=== PATIENT | male | born 1935 | race Caucasian/White ===

== ENCOUNTER 2019-06-28 14:49 | Inpatient (IN) | payer MEDICARE, BC ==
[~2019-06-28] VITALS: Ht 175.3 cm; Wt 71.2 kg
[2019-06-28 18:41] VITALS: BP 169/76
[2019-06-28] MEDS ORDERED: DEXTROSE 50% 50 ML DISP.SYRIN IV PRN (20:30)
[2019-06-28 20:33] VITALS: BP 115/70
[2019-06-28] MEDS ORDERED: Z GUARD REMEDY PASTE 57 GM TUBE TOP PRN (21:00)
[2019-06-28] MEDS ORDERED: ATORVASTATIN 40 MG TABLET PO SCH (21:00)
[2019-06-28] MEDS ORDERED: SENNOSIDES 1 TABLET GT PRN (21:00)
[2019-06-28] MEDS: CARBIDOPA/LEVODOPA 25-250MG TABLET GT SCH (21:24)
[2019-06-29] MEDS: BLOOD SUGAR DIAGNOSTIC 1 EACH STRIP VI SCH ×5 (00:36→23:47)
[2019-06-29 04:01] VITALS: BP 146/74
[2019-06-29 07:57] VITALS: BP 148/67
[2019-06-29] MEDS ORDERED: ASPIRIN EC 81 MG TABLET.DR PO SCH (09:00)
[2019-06-29] MEDS ORDERED: METOPROLOL SUCCINATE XL 25 MG TAB.SR.24H PO SCH (09:00)
[2019-06-29] MEDS ORDERED: Medication Not On Formulary EA (Atorvastatin Calcium (Lipitor) 80 MG) GT SCH (09:00)
[2019-06-29] MEDS ORDERED: LOSARTAN POTASSIUM 50 MG TABLET PO SCH (09:00)
[2019-06-29] MEDS: ASPIRIN 81 MG TAB.CHEW GT SCH (09:14)
[2019-06-29] MEDS: AMLODIPINE 5 MG TABLET GT SCH (09:15)
[2019-06-29] MEDS: LOSARTAN POTASSIUM 50 MG TABLET GT SCH (09:16)
[2019-06-29] MEDS: CARBIDOPA/LEVODOPA 25-250MG TABLET GT SCH ×4 (09:18→21:02)
[2019-06-29] MEDS: LEVOTHYROXINE SODIUM 200 MCG TABLET GT SCH (09:21)
[2019-06-29] MEDS: INSULIN REGULAR, HUMAN 300 UNIT/3 ML VIAL SQ PRN ×3 (09:23→23:50)
[2019-06-29] MEDS: METOPROLOL TARTRATE 25 MG TABLET GT SCH ×2 (14:44→21:04)
[2019-06-29 15:59] VITALS: BP 139/70
[2019-06-29] MEDS: GLUCERNA 1.2 1000ML LIQUID GT PRN (18:00)
[2019-06-29] MEDS ORDERED: METOPROLOL TARTRATE 25 MG TABLET GT SCH (21:00)
[2019-06-29] MEDS: ATORVASTATIN 40 MG TABLET GT SCH (21:03)
[2019-06-29 21:26] VITALS: BP 130/67
[2019-06-30] MEDS: BLOOD SUGAR DIAGNOSTIC 1 EACH STRIP VI SCH ×3 (06:01→17:23)
[2019-06-30] MEDS: INSULIN REGULAR, HUMAN 300 UNIT/3 ML VIAL SQ PRN ×3 (06:04→17:24)
[2019-06-30] MEDS: LEVOTHYROXINE SODIUM 200 MCG TABLET GT SCH (06:06)
[2019-06-30 06:15] VITALS: BP 152/65
[2019-06-30 07:32] LABS: BASOPHILS # (AUTO) 0.1 K/uL (0.0-8.0); BASOPHILS % (AUTO) 0.8 % (0.0-2.0); EOSINOPHILS # (AUTO) 0.4 K/uL (0.0-0.7); EOSINOPHILS % (AUTO) 3.5 % (0.0-7.0); HEMATOCRIT 39.9 % (36.7-47.1); LYMPHOCYTES # (AUTO) 1.1 K/uL (20.0-40.0); LYMPHOCYTES % (AUTO) 9.6 % (20.5-51.5); MEAN CORPUSCULAR HEMOGLOBIN 27.4 uug (23.8-33.4); MEAN CORPUSCULAR HGB CONC 33 g/dL (32.5-36.3); MEAN CORPUSCULAR VOLUME 84.1 fL (73.0-96.2); MONOCYTES # (AUTO) 1.1 K/uL (2.0-10.0); MONOCYTES % (AUTO) 9.5 % (0.0-11.0); NEUTROPHILS # (AUTO) 8.8 K/uL (1.8-8.9); NEUTROPHILS % (AUTO) 76.6 % (38.5-71.5); PLATELET COUNT (AUTO) 91 K/uL (152-348); RED BLOOD CELL COUNT(AUTO) 4.75 MIL/uL (4.06-5.63); WHITE BLOOD COUNT (AUTO) 11.6 K/uL (3.6-10.2)
[2019-06-30 07:44] LABS: BILIRUBIN,TOTAL 0.5 mg/dL (0.2-1.0); MAGNESIUM 2.1 mg/dL (1.8-2.4); PHOSPHOROUS 3.5 mg/dL (2.5-4.9); POTASSIUM 3.7 mmol/L (3.5-5.1); TOTAL PROTEIN, SERUM 6.1 g/dL (6.4-8.2)
[2019-06-30 08:00] VITALS: BP 151/67
[2019-06-30] MEDS: METOPROLOL TARTRATE 25 MG TABLET GT SCH ×2 (08:52→21:45)
[2019-06-30] MEDS: ASPIRIN 81 MG TAB.CHEW GT SCH (08:52)
[2019-06-30] MEDS: LOSARTAN POTASSIUM 50 MG TABLET GT SCH (08:53)
[2019-06-30] MEDS: AMLODIPINE 5 MG TABLET GT SCH (08:53)
[2019-06-30] MEDS: CARBIDOPA/LEVODOPA 25-250MG TABLET GT SCH ×4 (08:55→21:44)
[2019-06-30] MEDS: GLUCERNA 1.2 1000ML LIQUID GT PRN (15:00)
[2019-06-30 16:54] VITALS: BP 142/65
[2019-06-30 20:18] VITALS: BP 147/68
[2019-06-30] MEDS: ATORVASTATIN 40 MG TABLET GT SCH (21:44)
[2019-07-01] MEDS: BLOOD SUGAR DIAGNOSTIC 1 EACH STRIP VI SCH ×5 (00:14→23:39)
[2019-07-01] MEDS: INSULIN REGULAR, HUMAN 300 UNIT/3 ML VIAL SQ PRN ×4 (00:24→18:16)
[2019-07-01 05:58] VITALS: BP 138/70
[2019-07-01 08:00] VITALS: BP 147/75
[2019-07-01] MEDS: LEVOTHYROXINE SODIUM 200 MCG TABLET GT SCH (08:14)
[2019-07-01] MEDS: ASPIRIN 81 MG TAB.CHEW GT SCH (10:09)
[2019-07-01] MEDS: METOPROLOL TARTRATE 25 MG TABLET GT SCH ×2 (10:11→20:17)
[2019-07-01] MEDS: LOSARTAN POTASSIUM 50 MG TABLET GT SCH (10:14)
[2019-07-01] MEDS: CARBIDOPA/LEVODOPA 25-250MG TABLET GT SCH ×4 (10:15→20:17)
[2019-07-01] MEDS: AMLODIPINE 5 MG TABLET GT SCH (10:15)
[2019-07-01 17:04] VITALS: BP 133/63
[2019-07-01] MEDS: RIVAROXABAN 15 MG TABLET PO SCH (18:01)
[2019-07-01] MEDS: ATORVASTATIN 40 MG TABLET GT SCH (20:17)
[2019-07-01 20:45] VITALS: BP 122/58
[2019-07-02] MEDS: BLOOD SUGAR DIAGNOSTIC 1 EACH STRIP VI SCH ×4 (05:36→23:26)
[2019-07-02] MEDS: INSULIN REGULAR, HUMAN 300 UNIT/3 ML VIAL SQ PRN ×4 (05:38→23:28)
[2019-07-02] MEDS: GLUCERNA 1.2 1000ML LIQUID GT PRN (05:39)
[2019-07-02 05:41] VITALS: BP 142/71
[2019-07-02] MEDS: LEVOTHYROXINE SODIUM 200 MCG TABLET GT SCH (06:02)
[2019-07-02 07:56] VITALS: BP 156/73
[2019-07-02] MEDS: LOSARTAN POTASSIUM 50 MG TABLET GT SCH (08:54)
[2019-07-02] MEDS: CARBIDOPA/LEVODOPA 25-250MG TABLET GT SCH ×4 (08:54→20:34)
[2019-07-02] MEDS: ASPIRIN 81 MG TAB.CHEW GT SCH (08:54)
[2019-07-02] MEDS: AMLODIPINE 5 MG TABLET GT SCH (08:55)
[2019-07-02] MEDS: METOPROLOL TARTRATE 25 MG TABLET GT SCH ×2 (08:56→20:35)
[2019-07-02 15:28] VITALS: BP 134/68
[2019-07-02] MEDS: RIVAROXABAN 15 MG TABLET PO SCH (17:39)
[2019-07-02] MEDS: ATORVASTATIN 40 MG TABLET GT SCH (20:34)
[2019-07-02 20:55] VITALS: BP 133/57
[2019-07-02] MEDS: GLUCERNA 1.2 1000ML LIQUID GT SCH (23:20)
[2019-07-03] MEDS: BLOOD SUGAR DIAGNOSTIC 1 EACH STRIP VI SCH ×4 (05:29→23:19)
[2019-07-03] MEDS: INSULIN REGULAR, HUMAN 300 UNIT/3 ML VIAL SQ PRN ×2 (05:31→23:25)
[2019-07-03 05:53] VITALS: BP 150/57
[2019-07-03] MEDS: LEVOTHYROXINE SODIUM 200 MCG TABLET GT SCH (06:04)
[2019-07-03 08:34] VITALS: BP 101/59
[2019-07-03] MEDS: LOSARTAN POTASSIUM 50 MG TABLET GT SCH ×2 (09:00→16:30)
[2019-07-03] MEDS: ASPIRIN 81 MG TAB.CHEW GT SCH (09:32)
[2019-07-03] MEDS: AMLODIPINE 5 MG TABLET GT SCH ×2 (09:34→16:33)
[2019-07-03] MEDS: METOPROLOL TARTRATE 25 MG TABLET GT SCH ×2 (09:34→20:16)
[2019-07-03] MEDS: CARBIDOPA/LEVODOPA 25-250MG TABLET GT SCH ×4 (09:35→20:16)
[2019-07-03 16:02] VITALS: BP 142/61
[2019-07-03] MEDS: RIVAROXABAN 15 MG TABLET PO SCH (17:40)
[2019-07-03] MEDS: ATORVASTATIN 40 MG TABLET GT SCH (20:15)
[2019-07-03 20:16] VITALS: BP 133/59
[2019-07-04 05:00] VITALS: BP 121/57
[2019-07-04] MEDS: BLOOD SUGAR DIAGNOSTIC 1 EACH STRIP VI SCH ×4 (05:25→23:13)
[2019-07-04] MEDS: INSULIN REGULAR, HUMAN 300 UNIT/3 ML VIAL SQ PRN ×3 (05:27→23:19)
[2019-07-04] MEDS: GLUCERNA 1.2 1000ML LIQUID GT SCH (06:06)
[2019-07-04] MEDS: METOPROLOL TARTRATE 25 MG TABLET GT SCH ×2 (08:20→20:13)
[2019-07-04] MEDS: ASPIRIN 81 MG TAB.CHEW GT SCH (08:20)
[2019-07-04] MEDS: AMLODIPINE 5 MG TABLET GT SCH (08:21)
[2019-07-04] MEDS: CARBIDOPA/LEVODOPA 25-250MG TABLET GT SCH ×4 (08:21→20:11)
[2019-07-04 08:23] VITALS: BP 149/68
[2019-07-04] MEDS: LEVOTHYROXINE SODIUM 200 MCG TABLET GT SCH (09:42)
[2019-07-04 16:24] VITALS: BP 114/63
[2019-07-04] MEDS: RIVAROXABAN 15 MG TABLET PO SCH (17:37)
[2019-07-04 19:30] VITALS: BP 130/60
[2019-07-04] MEDS: ATORVASTATIN 40 MG TABLET GT SCH (20:12)
[2019-07-05 04:46] VITALS: BP 153/75
[2019-07-05] MEDS: BLOOD SUGAR DIAGNOSTIC 1 EACH STRIP VI SCH ×4 (05:09→23:36)
[2019-07-05] MEDS: INSULIN REGULAR, HUMAN 300 UNIT/3 ML VIAL SQ PRN ×4 (05:10→23:39)
[2019-07-05] MEDS: GLUCERNA 1.2 1000ML LIQUID GT PRN (05:12)
[2019-07-05 07:50] LABS: BASOPHILS # (AUTO) 0.1 K/uL (0.0-8.0); BASOPHILS % (AUTO) 0.7 % (0.0-2.0); EOSINOPHILS # (AUTO) 0.4 K/uL (0.0-0.7); EOSINOPHILS % (AUTO) 3.6 % (0.0-7.0); HEMATOCRIT 39.9 % (36.7-47.1); HEMOGLOBIN 12.8 g/dL (12.5-16.3); LYMPHOCYTES # (AUTO) 1.2 K/uL (20.0-40.0); LYMPHOCYTES % (AUTO) 10.4 % (20.5-51.5); MEAN CORPUSCULAR HEMOGLOBIN 27.1 uug (23.8-33.4); MEAN CORPUSCULAR HGB CONC 32 g/dL (32.5-36.3); MEAN CORPUSCULAR VOLUME 84.5 fL (73.0-96.2); MONOCYTES # (AUTO) 1.4 K/uL (2.0-10.0); MONOCYTES % (AUTO) 11.8 % (0.0-11.0); NEUTROPHILS # (AUTO) 8.4 K/uL (1.8-8.9); NEUTROPHILS % (AUTO) 73.5 % (38.5-71.5); PLATELET COUNT (AUTO) 72 K/uL (152-348); RED BLOOD CELL COUNT(AUTO) 4.73 MIL/uL (4.06-5.63); WHITE BLOOD COUNT (AUTO) 11.5 K/uL (3.6-10.2)
[2019-07-05 07:59] VITALS: BP 153/71
[2019-07-05] MEDS: LOSARTAN POTASSIUM 50 MG TABLET GT SCH (09:16)
[2019-07-05] MEDS: AMLODIPINE 5 MG TABLET GT SCH (09:16)
[2019-07-05] MEDS: METOPROLOL TARTRATE 25 MG TABLET GT SCH ×2 (09:18→21:50)
[2019-07-05] MEDS: LEVOTHYROXINE SODIUM 200 MCG TABLET GT SCH (09:19)
[2019-07-05] MEDS: CARBIDOPA/LEVODOPA 25-250MG TABLET GT SCH ×4 (09:20→21:50)
[2019-07-05] MEDS: ASPIRIN 81 MG TAB.CHEW GT SCH (09:21)
[2019-07-05] MEDS ORDERED: RIVAROXABAN 15 MG TABLET GT SCH (09:56)
[2019-07-05 11:14] LABS: BAND % (MANUAL) 1 % (0-10); EOSINOPHILS % (MANUAL) 6 % (0-8); LYMPHOCYTES % (MANUAL) 13 % (20-40); MONOCYTES % (MANUAL) 12 % (2-10); NEUTROPHILS % (MANUAL) 68 % (42-75)
[2019-07-05 16:27] VITALS: BP 128/66
[2019-07-05 20:32] VITALS: BP_SYST 129; BP_SYST 136; BP_DIAS 54; BP_DIAS 66
[2019-07-05] MEDS: ATORVASTATIN 40 MG TABLET GT SCH (21:50)
[2019-07-06 04:56] VITALS: BP 132/59
[2019-07-06] MEDS: BLOOD SUGAR DIAGNOSTIC 1 EACH STRIP VI SCH ×4 (06:16→23:50)
[2019-07-06 08:00] VITALS: BP 151/71
[2019-07-06] MEDS: ASPIRIN 81 MG TAB.CHEW GT SCH (08:24)
[2019-07-06] MEDS: CARBIDOPA/LEVODOPA 25-250MG TABLET GT SCH ×4 (08:26→20:34)
[2019-07-06] MEDS: LOSARTAN POTASSIUM 50 MG TABLET GT SCH (08:27)
[2019-07-06] MEDS: METOPROLOL TARTRATE 25 MG TABLET GT SCH ×2 (08:27→20:34)
[2019-07-06] MEDS: AMLODIPINE 5 MG TABLET GT SCH (08:28)
[2019-07-06] MEDS: LEVOTHYROXINE SODIUM 200 MCG TABLET GT SCH (08:28)
[2019-07-06] MEDS: INSULIN REGULAR, HUMAN 300 UNIT/3 ML VIAL SQ PRN ×3 (12:19→23:51)
[2019-07-06 16:00] VITALS: BP 140/69
[2019-07-06] MEDS ORDERED: RIVAROXABAN 15 MG TABLET PO ONE (18:00)
[2019-07-06 19:05] LABS: *BILIRUBIN,URIN NEGATIVE (NEGATIVE); *BLOOD, URINE NEGATIVE (NEGATIVE); *CLARITY,URINE CLEAR (CLEAR); *COLOR,URINE YELLOW (YELLOW); *KETONES,URINE TRACE (NEGATIVE); *UROBILINOGEN,URINE 0.2 E.U./dl (NORMAL); LEUKOCYTE ESTERASE ,URINE NEGATIVE (NEGATIVE); NITRITE, URINE NEGATIVE (NEGATIVE); UGLUCOSE NEGATIVE (NEGATIVE)
[2019-07-06 19:17] LABS: BACTERIA,URINE NONE SEEN /HPF (NONE SEEN); MUCUS,URINE FEW /LPF (0-FEW); SQUAMOUS EPITHELIAL CELL,UR MODERATE /HPF (NONE SEEN)
[2019-07-06 19:46] VITALS: BP 131/62
[2019-07-06] MEDS: ATORVASTATIN 40 MG TABLET GT SCH (20:34)
[2019-07-07 05:10] VITALS: BP 151/77
[2019-07-07] MEDS: BLOOD SUGAR DIAGNOSTIC 1 EACH STRIP VI SCH ×4 (05:55→23:08)
[2019-07-07] MEDS: INSULIN REGULAR, HUMAN 300 UNIT/3 ML VIAL SQ PRN ×3 (05:56→23:09)
[2019-07-07 08:00] VITALS: BP 145/69
[2019-07-07 08:05] LABS: BASOPHILS # (AUTO) 0.1 K/uL (0.0-8.0); BASOPHILS % (AUTO) 0.8 % (0.0-2.0); EOSINOPHILS # (AUTO) 0.3 K/uL (0.0-0.7); EOSINOPHILS % (AUTO) 2.4 % (0.0-7.0); HEMATOCRIT 40.8 % (36.7-47.1); HEMOGLOBIN 13.2 g/dL (12.5-16.3); LYMPHOCYTES # (AUTO) 1.2 K/uL (20.0-40.0); MEAN CORPUSCULAR HEMOGLOBIN 27.1 uug (23.8-33.4); MEAN CORPUSCULAR HGB CONC 32 g/dL (32.5-36.3); MEAN CORPUSCULAR VOLUME 83.9 fL (73.0-96.2); MONOCYTES # (AUTO) 1.1 K/uL (2.0-10.0); MONOCYTES % (AUTO) 10.8 % (0.0-11.0); NEUTROPHILS # (AUTO) 7.7 K/uL (1.8-8.9); PLATELET COUNT (AUTO) 70 K/uL (152-348); RED BLOOD CELL COUNT(AUTO) 4.86 MIL/uL (4.06-5.63); WHITE BLOOD COUNT (AUTO) 10.4 K/uL (3.6-10.2)
[2019-07-07 08:20] LABS: THYROID STIMULATING HORMONE 0.601 mIU/mL (0.358-3.740)
[2019-07-07] MEDS: LOSARTAN POTASSIUM 50 MG TABLET GT SCH (08:23)
[2019-07-07] MEDS: AMLODIPINE 5 MG TABLET GT SCH (08:24)
[2019-07-07] MEDS: METOPROLOL TARTRATE 25 MG TABLET GT SCH ×2 (08:24→20:26)
[2019-07-07] MEDS: CARBIDOPA/LEVODOPA 25-250MG TABLET GT SCH ×4 (08:24→20:26)
[2019-07-07] MEDS: LEVOTHYROXINE SODIUM 200 MCG TABLET GT SCH (08:25)
[2019-07-07 14:44] VITALS: BP 118/63
[2019-07-07] MEDS: GLUCERNA 1.2 1000ML LIQUID GT PRN (17:10)
[2019-07-07] MEDS: ASPIRIN 81 MG TAB.CHEW GT SCH (17:14)
[2019-07-07] MEDS: RIVAROXABAN 15 MG TABLET GT SCH (17:15)
[2019-07-07 19:45] VITALS: BP 136/64
[2019-07-07] MEDS: ATORVASTATIN 40 MG TABLET GT SCH (20:26)
[2019-07-08] MEDS: GLUCERNA 1.2 1000ML LIQUID GT PRN (05:34)
[2019-07-08] MEDS: BLOOD SUGAR DIAGNOSTIC 1 EACH STRIP VI SCH ×4 (05:38→23:58)
[2019-07-08] MEDS: INSULIN REGULAR, HUMAN 300 UNIT/3 ML VIAL SQ PRN ×4 (05:40→23:59)
[2019-07-08 06:26] VITALS: BP 155/67
[2019-07-08 07:36] VITALS: BP 159/76
[2019-07-08] MEDS: LOSARTAN POTASSIUM 50 MG TABLET GT SCH (08:41)
[2019-07-08] MEDS: AMLODIPINE 5 MG TABLET GT SCH (08:42)
[2019-07-08] MEDS: METOPROLOL TARTRATE 25 MG TABLET GT SCH ×2 (08:42→20:33)
[2019-07-08] MEDS: ASPIRIN 81 MG TAB.CHEW GT SCH (08:42)
[2019-07-08] MEDS: CARBIDOPA/LEVODOPA 25-250MG TABLET GT SCH ×4 (08:43→20:32)
[2019-07-08] MEDS: LEVOTHYROXINE SODIUM 200 MCG TABLET GT SCH (08:43)
[2019-07-08 14:54] VITALS: BP 134/72
[2019-07-08 19:00] VITALS: BP 136/56
[2019-07-08] MEDS: RIVAROXABAN 15 MG TABLET GT SCH (19:08)
[2019-07-08] MEDS: ATORVASTATIN 40 MG TABLET GT SCH (20:32)
[2019-07-09] MEDS: GLUCERNA 1.2 1000ML LIQUID GT PRN (04:27)
[2019-07-09 05:38] VITALS: BP 156/68
[2019-07-09] MEDS: BLOOD SUGAR DIAGNOSTIC 1 EACH STRIP VI SCH ×3 (05:59→17:25)
[2019-07-09] MEDS: INSULIN REGULAR, HUMAN 300 UNIT/3 ML VIAL SQ PRN ×2 (06:01→12:43)
[2019-07-09 08:00] VITALS: BP 157/72
[2019-07-09] MEDS: CARBIDOPA/LEVODOPA 25-250MG TABLET GT SCH ×4 (08:18→20:50)
[2019-07-09] MEDS: ASPIRIN 81 MG TAB.CHEW GT SCH (08:18)
[2019-07-09] MEDS: AMLODIPINE 5 MG TABLET GT SCH (08:18)
[2019-07-09] MEDS: LOSARTAN POTASSIUM 50 MG TABLET GT SCH (08:19)
[2019-07-09] MEDS: LEVOTHYROXINE SODIUM 200 MCG TABLET GT SCH (08:19)
[2019-07-09] MEDS: METOPROLOL TARTRATE 25 MG TABLET GT SCH ×2 (12:02→20:50)
[2019-07-09 16:00] VITALS: BP_SYST 117; BP_SYST 131; BP_DIAS 59; BP_DIAS 60
[2019-07-09] MEDS: RIVAROXABAN 15 MG TABLET GT SCH (17:29)
[2019-07-09 20:50] VITALS: BP 127/58
[2019-07-09] MEDS: ATORVASTATIN 40 MG TABLET GT SCH (20:50)
[2019-07-10] MEDS: BLOOD SUGAR DIAGNOSTIC 1 EACH STRIP VI SCH ×4 (00:06→17:19)
[2019-07-10] MEDS: INSULIN REGULAR, HUMAN 300 UNIT/3 ML VIAL SQ PRN ×4 (00:07→17:29)
[2019-07-10 05:51] VITALS: BP 152/64
[2019-07-10 08:04] LABS: THYROID STIMULATING HORMONE 0.247 mIU/mL (0.358-3.740)
[2019-07-10] MEDS: LEVOTHYROXINE SODIUM 200 MCG TABLET GT SCH (08:32)
[2019-07-10] MEDS: CARBIDOPA/LEVODOPA 25-250MG TABLET GT SCH ×4 (08:32→20:52)
[2019-07-10] MEDS: ASPIRIN 81 MG TAB.CHEW GT SCH (08:32)
[2019-07-10] MEDS: AMLODIPINE 5 MG TABLET GT SCH (08:33)
[2019-07-10] MEDS: METOPROLOL TARTRATE 25 MG TABLET GT SCH ×2 (08:33→20:52)
[2019-07-10] MEDS: LOSARTAN POTASSIUM 50 MG TABLET GT SCH (08:40)
[2019-07-10 08:52] VITALS: BP 146/65
[2019-07-10 09:32] LABS: *RHEUMATOID FACTOR SCREEN NEGATIVE (NEGATIVE)
[2019-07-10 10:37] VITALS: BP 146/65
[2019-07-10 15:52] VITALS: BP 124/62
[2019-07-10] MEDS: RIVAROXABAN 15 MG TABLET GT SCH (17:29)
[2019-07-10] MEDS: ATORVASTATIN 40 MG TABLET GT SCH (20:51)
[2019-07-10 21:07] VITALS: BP 131/63
[2019-07-11] MEDS: BLOOD SUGAR DIAGNOSTIC 1 EACH STRIP VI SCH ×5 (00:13→23:32)
[2019-07-11] MEDS: INSULIN REGULAR, HUMAN 300 UNIT/3 ML VIAL SQ PRN ×4 (00:15→23:32)
[2019-07-11 05:47] VITALS: BP 130/58
[2019-07-11 05:48] VITALS: BP_SYST 109; BP_SYST 130; BP_DIAS 58; BP_DIAS 64
[2019-07-11 07:20] LABS: BASOPHILS # (AUTO) 0.1 K/uL (0.0-8.0); BASOPHILS % (AUTO) 0.7 % (0.0-2.0); EOSINOPHILS # (AUTO) 0.3 K/uL (0.0-0.7); EOSINOPHILS % (AUTO) 2.9 % (0.0-7.0); HEMATOCRIT 37.7 % (36.7-47.1); HEMOGLOBIN 12.5 g/dL (12.5-16.3); LYMPHOCYTES # (AUTO) 1.1 K/uL (20.0-40.0); LYMPHOCYTES % (AUTO) 10.8 % (20.5-51.5); MEAN CORPUSCULAR HEMOGLOBIN 27.5 uug (23.8-33.4); MEAN CORPUSCULAR HGB CONC 33 g/dL (32.5-36.3); MEAN CORPUSCULAR VOLUME 83.1 fL (73.0-96.2); MONOCYTES # (AUTO) 1.1 K/uL (2.0-10.0); MONOCYTES % (AUTO) 11.5 % (0.0-11.0); NEUTROPHILS # (AUTO) 7.2 K/uL (1.8-8.9); NEUTROPHILS % (AUTO) 74.1 % (38.5-71.5); RED BLOOD CELL COUNT(AUTO) 4.54 MIL/uL (4.06-5.63); WHITE BLOOD COUNT (AUTO) 9.7 K/uL (3.6-10.2)
[2019-07-11] MEDS: CARBIDOPA/LEVODOPA 25-250MG TABLET GT SCH ×4 (09:11→21:21)
[2019-07-11] MEDS: LEVOTHYROXINE SODIUM 200 MCG TABLET GT SCH (09:12)
[2019-07-11] MEDS: ASPIRIN 81 MG TAB.CHEW GT SCH (09:12)
[2019-07-11] MEDS: METOPROLOL TARTRATE 25 MG TABLET GT SCH ×2 (09:18→21:21)
[2019-07-11] MEDS: AMLODIPINE 5 MG TABLET GT SCH (09:19)
[2019-07-11] MEDS: LOSARTAN POTASSIUM 50 MG TABLET GT SCH (09:25)
[2019-07-11 09:30] VITALS: BP 163/80
[2019-07-11] MEDS ORDERED: hydrALAZINE HCL 25 MG TABLET PO PRN (11:00)
[2019-07-11 12:13] LABS: HEPATITIS B SURFACE AB Non Reactive (.); HEPATITIS B SURFACE AG Negative (Negative)
[2019-07-11 13:18] LABS: PLATELET COUNT (AUTO) 71 K/uL (152-348)
[2019-07-11 16:12] VITALS: BP 120/56
[2019-07-11] MEDS: RIVAROXABAN 15 MG TABLET GT SCH (17:40)
[2019-07-11 19:00] VITALS: BP 125/57
[2019-07-11] MEDS ORDERED: ATORVASTATIN 40 MG TABLET ONE (21:20)
[2019-07-11] MEDS ORDERED: ATORVASTATIN 20 MG TABLET ONE (21:20)
[2019-07-11] MEDS: ATORVASTATIN 40 MG TABLET GT SCH (21:21)
[2019-07-12] MEDS: BLOOD SUGAR DIAGNOSTIC 1 EACH STRIP VI SCH ×4 (05:18→23:43)
[2019-07-12] MEDS: INSULIN REGULAR, HUMAN 300 UNIT/3 ML VIAL SQ PRN ×4 (05:19→23:46)
[2019-07-12 05:41] VITALS: BP 140/66
[2019-07-12] MEDS: GLUCERNA 1.2 1000ML LIQUID GT PRN (05:53)
[2019-07-12 08:00] VITALS: BP 156/72
[2019-07-12 08:16] LABS: *IMMUNOGLOBULIN G, SERUM 625 mg/dL (700-1600); IMMUNOGLOBULIN A, SERUM 170 mg/dL (61-437); IMMUNOGLOBULIN M, SERUM 62 mg/dL (15-143)
[2019-07-12] MEDS: CARBIDOPA/LEVODOPA 25-250MG TABLET GT SCH ×4 (09:11→21:28)
[2019-07-12] MEDS: ASPIRIN 81 MG TAB.CHEW GT SCH (09:13)
[2019-07-12] MEDS: AMLODIPINE 5 MG TABLET GT SCH (09:15)
[2019-07-12] MEDS: METOPROLOL TARTRATE 25 MG TABLET GT SCH ×2 (09:15→21:26)
[2019-07-12] MEDS: LOSARTAN POTASSIUM 50 MG TABLET GT SCH (09:16)
[2019-07-12] MEDS: LEVOTHYROXINE SODIUM 200 MCG TABLET GT SCH (09:17)
[2019-07-12 14:07] LABS: A/G RATIO 1.1 (0.7-1.7); ALBUMIN 2.6 g/dL (2.9-4.4); ALPHA-1-GLOBULIN 0.3 g/dL (0.0-0.4); ALPHA-2-GLOBULIN 0.8 g/dL (0.4-1.0); BETA GLOBULIN 0.9 g/dL (0.7-1.3); GAMMA GLOBULIN 0.4 g/dL (0.4-1.8); GLOBULIN, TOTAL 2.3 g/dL (2.2-3.9); M-SPIKE Not Observed g/dL (Not Observed)
[2019-07-12 16:00] VITALS: BP 132/65
[2019-07-12] MEDS: RIVAROXABAN 15 MG TABLET GT SCH (17:46)
[2019-07-12 20:28] VITALS: BP 117/51
[2019-07-12] MEDS: ATORVASTATIN 40 MG TABLET GT SCH (21:27)
[2019-07-13] MEDS: BLOOD SUGAR DIAGNOSTIC 1 EACH STRIP VI SCH ×3 (05:43→18:10)
[2019-07-13] MEDS: INSULIN REGULAR, HUMAN 300 UNIT/3 ML VIAL SQ PRN ×2 (05:45→11:42)
[2019-07-13 05:48] VITALS: BP 134/63
[2019-07-13 07:37] VITALS: BP 114/69
[2019-07-13] MEDS: LEVOTHYROXINE SODIUM 200 MCG TABLET GT SCH (08:08)
[2019-07-13] MEDS: LOSARTAN POTASSIUM 50 MG TABLET GT SCH (08:08)
[2019-07-13] MEDS: METOPROLOL TARTRATE 25 MG TABLET GT SCH ×2 (08:09→20:59)
[2019-07-13] MEDS: AMLODIPINE 5 MG TABLET GT SCH (08:10)
[2019-07-13] MEDS: CARBIDOPA/LEVODOPA 25-250MG TABLET GT SCH ×4 (08:10→20:59)
[2019-07-13] MEDS: ASPIRIN 81 MG TAB.CHEW GT SCH (08:10)
[2019-07-13 15:43] VITALS: BP 113/56
[2019-07-13] MEDS: RIVAROXABAN 15 MG TABLET GT SCH (18:11)
[2019-07-13 20:48] VITALS: BP 137/73
[2019-07-13] MEDS: ATORVASTATIN 40 MG TABLET GT SCH (20:58)
[2019-07-14] MEDS: BLOOD SUGAR DIAGNOSTIC 1 EACH STRIP VI SCH ×5 (00:09→23:28)
[2019-07-14] MEDS: INSULIN REGULAR, HUMAN 300 UNIT/3 ML VIAL SQ PRN ×5 (00:10→23:29)
[2019-07-14 05:46] VITALS: BP 154/66
[2019-07-14 08:00] VITALS: BP 146/71
[2019-07-14] MEDS: LEVOTHYROXINE SODIUM 200 MCG TABLET GT SCH (08:36)
[2019-07-14] MEDS: CARBIDOPA/LEVODOPA 25-250MG TABLET GT SCH ×4 (08:37→20:08)
[2019-07-14] MEDS: AMLODIPINE 5 MG TABLET GT SCH (08:38)
[2019-07-14] MEDS: ASPIRIN 81 MG TAB.CHEW GT SCH (08:38)
[2019-07-14] MEDS: METOPROLOL TARTRATE 25 MG TABLET GT SCH ×2 (08:39→20:10)
[2019-07-14] MEDS: LOSARTAN POTASSIUM 50 MG TABLET GT SCH (08:39)
[2019-07-14 16:38] VITALS: BP 124/65
[2019-07-14] MEDS: GLUCERNA 1.2 1000ML LIQUID GT PRN (17:34)
[2019-07-14] MEDS: RIVAROXABAN 15 MG TABLET GT SCH (18:07)
[2019-07-14] MEDS: ACETAMINOPHEN ES 500 MG TABLET PO PRN (19:57)
[2019-07-14] MEDS: ATORVASTATIN 40 MG TABLET GT SCH (20:08)
[2019-07-14 20:19] VITALS: BP 131/63
[2019-07-15] MEDS: ACETAMINOPHEN ES 500 MG TABLET PO PRN ×2 (02:17→23:32)
[2019-07-15 04:58] VITALS: BP 129/67
[2019-07-15] MEDS: BLOOD SUGAR DIAGNOSTIC 1 EACH STRIP VI SCH ×4 (05:23→23:50)
[2019-07-15] MEDS: INSULIN REGULAR, HUMAN 300 UNIT/3 ML VIAL SQ PRN ×4 (05:26→23:29)
[2019-07-15 08:00] VITALS: BP 152/73
[2019-07-15] MEDS: LEVOTHYROXINE SODIUM 175 MCG TABLET GT SCH (08:27)
[2019-07-15] MEDS: LOSARTAN POTASSIUM 50 MG TABLET GT SCH (08:36)
[2019-07-15] MEDS: ASPIRIN 81 MG TAB.CHEW GT SCH (08:36)
[2019-07-15] MEDS: METOPROLOL TARTRATE 25 MG TABLET GT SCH ×2 (08:36→20:36)
[2019-07-15] MEDS: CARBIDOPA/LEVODOPA 25-250MG TABLET GT SCH ×4 (08:37→20:38)
[2019-07-15] MEDS: AMLODIPINE 5 MG TABLET GT SCH (08:37)
[2019-07-15] MEDS ORDERED: LEVOTHYROXINE SODIUM 200 MCG TABLET GT SCH (09:00)
[2019-07-15 11:06] LABS: *ANTI-SCLERODERMA-70 AB <0.2 AI (0.0-0.9); *SJOGREN'S ANTI-SS-A <0.2 AI (0.0-0.9); *SJOGREN'S ANTI-SS-B <0.2 AI (0.0-0.9); *SMITH ANTIBODIES <0.2 AI (0.0-0.9); ANTI-DNA(DS) AB, QN 3 IU/mL (0-9)
[2019-07-15 16:00] VITALS: BP 123/60
[2019-07-15] MEDS: GLUCERNA 1.2 1000ML LIQUID GT PRN (17:29)
[2019-07-15] MEDS: RIVAROXABAN 15 MG TABLET GT SCH (17:32)
[2019-07-15] MEDS: ATORVASTATIN 40 MG TABLET GT SCH (20:35)
[2019-07-15 20:44] VITALS: BP_SYST 142; BP_SYST 147; BP_DIAS 64; BP_DIAS 66
[2019-07-16] MEDS: GLUCERNA 1.2 1000ML LIQUID GT PRN (05:25)
[2019-07-16] MEDS: INSULIN REGULAR, HUMAN 300 UNIT/3 ML VIAL SQ PRN ×3 (05:39→23:17)
[2019-07-16] MEDS: BLOOD SUGAR DIAGNOSTIC 1 EACH STRIP VI SCH ×4 (05:40→23:14)
[2019-07-16 06:02] VITALS: BP 151/64
[2019-07-16] MEDS: LEVOTHYROXINE SODIUM 175 MCG TABLET GT SCH (06:25)
[2019-07-16 07:30] VITALS: BP 153/69
[2019-07-16] MEDS: CARBIDOPA/LEVODOPA 25-250MG TABLET GT SCH (08:47)
[2019-07-16] MEDS: LOSARTAN POTASSIUM 50 MG TABLET GT SCH (08:47)
[2019-07-16] MEDS: METOPROLOL TARTRATE 25 MG TABLET GT SCH (08:48)
[2019-07-16] MEDS: AMLODIPINE 5 MG TABLET GT SCH (08:48)
[2019-07-16] MEDS: ASPIRIN 81 MG TAB.CHEW GT SCH (08:48)
[2019-07-16] MEDS ORDERED: SENNOSIDES 1 TABLET PO PRN (10:45)
[2019-07-16] MEDS: CARBIDOPA/LEVODOPA 25-250MG TABLET PO SCH ×3 (12:46→20:32)
[2019-07-16 15:30] VITALS: BP 123/65
[2019-07-16] MEDS: RIVAROXABAN 15 MG TABLET PO SCH (17:36)
[2019-07-16] MEDS: ATORVASTATIN 40 MG TABLET PO SCH (20:29)
[2019-07-16] MEDS: METOPROLOL TARTRATE 25 MG TABLET PO SCH (20:30)
[2019-07-16 20:41] VITALS: BP 131/65
[2019-07-16] MEDS: ACETAMINOPHEN ES 500 MG TABLET PO PRN (23:14)
[2019-07-17] MEDS: GLUCERNA 1.2 1000ML LIQUID GT PRN ×2 (04:45→17:49)
[2019-07-17 05:00] VITALS: BP 143/66
[2019-07-17] MEDS: BLOOD SUGAR DIAGNOSTIC 1 EACH STRIP VI SCH ×4 (05:27→23:41)
[2019-07-17] MEDS: INSULIN REGULAR, HUMAN 300 UNIT/3 ML VIAL SQ PRN ×4 (05:30→23:52)
[2019-07-17] MEDS: LEVOTHYROXINE SODIUM 175 MCG TABLET PO SCH (06:07)
[2019-07-17 08:00] VITALS: BP 147/58
[2019-07-17] MEDS: ASPIRIN 81 MG TAB.CHEW PO SCH (09:21)
[2019-07-17] MEDS: CARBIDOPA/LEVODOPA 25-250MG TABLET PO SCH ×4 (09:21→20:26)
[2019-07-17] MEDS: LOSARTAN POTASSIUM 50 MG TABLET PO SCH (09:22)
[2019-07-17] MEDS: AMLODIPINE 5 MG TABLET PO SCH (09:22)
[2019-07-17] MEDS: METOPROLOL TARTRATE 25 MG TABLET PO SCH ×2 (09:23→20:37)
[2019-07-17] MEDS: RIVAROXABAN 15 MG TABLET PO SCH (17:34)
[2019-07-17] MEDS: ATORVASTATIN 40 MG TABLET PO SCH (20:27)
[2019-07-17 20:32] VITALS: BP 122/57
[2019-07-17] MEDS: ACETAMINOPHEN ES 500 MG TABLET PO PRN (23:46)
[2019-07-18] MEDS: GLUCERNA 1.2 1000ML LIQUID GT PRN (04:11)
[2019-07-18 05:00] VITALS: BP 117/69
[2019-07-18] MEDS: LEVOTHYROXINE SODIUM 175 MCG TABLET PO SCH (06:00)
[2019-07-18] MEDS: BLOOD SUGAR DIAGNOSTIC 1 EACH STRIP VI SCH ×2 (06:05→12:01)
[2019-07-18] MEDS: INSULIN REGULAR, HUMAN 300 UNIT/3 ML VIAL SQ PRN ×2 (06:16→11:55)
[2019-07-18 08:00] VITALS: BP 146/71
[2019-07-18] MEDS: CARBIDOPA/LEVODOPA 25-250MG TABLET PO SCH ×2 (08:43→12:40)
[2019-07-18] MEDS: ASPIRIN 81 MG TAB.CHEW PO SCH (08:43)
[2019-07-18] MEDS: METOPROLOL TARTRATE 25 MG TABLET PO SCH (08:44)
[2019-07-18] MEDS: AMLODIPINE 5 MG TABLET PO SCH (08:44)
[2019-07-18 08:45] VITALS: BP 146/71
[2019-07-18] MEDS: LOSARTAN POTASSIUM 50 MG TABLET PO SCH (08:45)
== END 2019-07-18 15:25 | DRG 57 ==
PROVIDERS: ADMIT Physical Medicine & Rehabilitation Pain Medicine; ATTEND Physical Medicine & Rehabilitation Pain Medicine
DX: I69.351 Hemiplegia and hemiparesis following cerebral infarction affecting right dominant side (principal); D69.3 Immune thrombocytopenic purpura; I69.391 Dysphagia following cerebral infarction; R13.10 Dysphagia, unspecified; I48.91 Unspecified atrial fibrillation; E11.9 Type 2 diabetes mellitus without complications; Z79.01 Long term (current) use of anticoagulants; E89.0 Postprocedural hypothyroidism; Z91.81 History of falling; G20 Parkinson's disease; I10 Essential (primary) hypertension; Z93.1 Gastrostomy status; I69.322 Dysarthria following cerebral infarction
CPT/HCPCS: 36415; 70030-TC; 70450; 74230; 76700; 82747; 82784; 83615; 83735; 84100; 84155; 84165; 84443; 85014; 85025; 85049; 85651; 86038; 86334; 86430; 86706; 86803; 87086; 87340; A9150; J1815